=== PATIENT | male | born 1970 ===

== ENCOUNTER 2019-01-24 00:45 | Inpatient (IN) | payer MEDICAID, OTHER ==
[~2019-01-24] VITALS: Ht 172.7 cm; Wt 114.4 kg
[2019-02-07 07:54] VITALS: BP 92/53
== END 2019-02-07 12:30 | disposition hospice, home (50) | DRG 432 ==
LOC: ED 01:49 → EDIP 02:15 → CCU 05:24 → 4NOR 01-25 12:24
PROVIDERS: ADMIT Internal Medicine; ATTEND Internal Medicine
PROC: 30233N1 Transfusion of Nonautologous Red Blood Cells into Peripheral Vein, Percutaneous Approach (ICD-10-PCS; principal; 2019-01-24)
PROC: 06L38CZ Occlusion of Esophageal Vein with Extraluminal Device, Via Natural or Artificial Opening Endoscopic (ICD-10-PCS; 2019-01-24)
PROC: 0W9G30Z Drainage of Peritoneal Cavity with Drainage Device, Percutaneous Approach (ICD-10-PCS; 2019-02-06)
DX: K70.31 Alcoholic cirrhosis of liver with ascites (principal); I85.11 Secondary esophageal varices with bleeding; R57.8 Other shock; R53.2 Functional quadriplegia; K80.10 Calculus of gallbladder with chronic cholecystitis without obstruction; E44.0 Moderate protein-calorie malnutrition; D62 Acute posthemorrhagic anemia; D68.4 Acquired coagulation factor deficiency; N17.9 Acute kidney failure, unspecified; F10.239 Alcohol dependence with withdrawal, unspecified; K70.10 Alcoholic hepatitis without ascites; K72.90 Hepatic failure, unspecified without coma; Y90.9 Presence of alcohol in blood, level not specified; K44.9 Diaphragmatic hernia without obstruction or gangrene; K76.0 Fatty (change of) liver, not elsewhere classified; D69.6 Thrombocytopenia, unspecified; Z80.0 Family history of malignant neoplasm of digestive organs; Z79.899 Other long term (current) drug therapy; Z68.38 Body mass index [BMI] 38.0-38.9, adult
CPT/HCPCS: 36415; 87338; 99291; J3490; J7042; 36430; 49418; 74177; 76700; 76705; 78226; 80048; 80053; 80061; 80074; 81001; 82107; 82140; 82247; 82248; 82306; 82607; 82728; 83036; 83540; 83550; 83690; 83735; 84100; 84300; 84425; 84439; 84443; 84590; 84630; 85014; 85018; 85025; 85610; 85730; 86704; 86706; 86708; 86850; 86900; 86923; 87081; 87086; 93005; 96365; 96366; 96374; 96375; 99156; 99157; G0378; J0696; J2250; J2354; J2405; J2704; J3010; J3411; J3430; J3480; P9047; Q0162; Q9967; A9537; C1729; C9898; J0780; J2060; J2310; J3475; J7030; J7040; J7050; J7510; P9016